=== PATIENT | female | born 1985 | race Caucasian/White ===

== ENCOUNTER 2017-06-30 12:35 | Emergency (ER) | payer BC ==
--- NOTE | 2017-06-30 13:05 | EDM.PDOC ---
ED HPI GENERAL MEDICAL PROBLEM - General Chief Complaint: CHIEF OF POLICE Problem Stated Complaint: bleeding Time Seen by Provider: 06/30/17 13:05 Source of Information: Reports: Patient - History of Present Illness INITIAL COMMENTS - FREE TEXT/NARRATIVE: HISTORY AND PHYSICAL: History of present illness: []31-year-old at 6 weeks by uncertain dates presents with passage of clots and tissue yesterday continued bleeding today currently spotting No fever nausea vomiting chills sweats Primary OB care is Dr. HARVEY Review of systems: As per history of present illness and below otherwise all systems reviewed and negative. Past medical history: As per history of present illness and as reviewed below otherwise noncontributory. Surgical history: As per history of present illness and as reviewed below otherwise noncontributory. Social history: No reported history of drug or alcohol abuse. Family history: As per history of present illness and as reviewed below otherwise noncontributory. Physical exam: HEENT: Atraumatic, normocephalic, pupils reactive, negative for conjunctival pallor or scleral icterus, mucous membranes moist, throat clear, neck supple, nontender, trachea midline. Lungs: Clear to auscultation, breath sounds equal bilaterally, chest nontender. Heart: S1S2, regular, negative for clicks, rubs, or JVD. Abdomen: Soft, nondistended, nontender. Negative for masses or hepatosplenomegaly. Negative for costovertebral tenderness. Pelvis: Stable nontender. Genitourinary: Cervix closed no mass scarred lesion no clots or products of conception Rectal: Deferred. Extremities: Atraumatic, negative for cords or calf pain. Neurovascular unremarkable. Neuro: Awake, alert, oriented. Cranial nerves II through XII unremarkable. Cerebellum unremarkable. Motor and sensory unremarkable throughout. Exam nonfocal. Diagnostics: []Lab as below Ultrasound Therapeutics: [] Impression: Completed Cervix closed 7 weeks by uncertain dates Ultrasound Definitive disposition and diagnosis as appropriate pending reevaluation and review of above. Lower Abdomen Pain Score (Numeric/FACES): 1 - Related Data Allergies Allergy/AdvReac Type Severity Reaction Status Date / Time peanuts Allergy Itching Uncoded 06/30/17 12:46 seasonal Allergy Sneezing Uncoded 06/30/17 12:46 Home Meds: Home Meds ALPRAZolam [Xanax] 0.5 mg PO TID 06/30/17 [History] Past Medical History - Past Health History Medical/Surgical History: Denies Medical/Surgical History CHIEF OF POLICE History: Reports: - Infectious Disease History Infectious Disease History: Reports: Chicken Pox Social & Family History - Family History Family Medical History: Noncontributory - Tobacco Use Smoking Status *Q: Never Smoker Second Hand Smoke Exposure: No - Caffeine Use Caffeine Use: Reports: None - Recreational Drug Use Recreational Drug Use: No ED ROS GENERAL - Review of Systems Review Of Systems: ROS reveals no pertinent complaints other than HPI. ED EXAM, GENERAL - Physical Exam Exam: See Below Course - Vital Signs Last Recorded V/S: Last Vital Signs Temp 36.4 C 06/30/17 12:40 Pulse 69 06/30/17 12:40 Resp 20 06/30/17 12:40 BP 133/73 06/30/17 12:40 Pulse Ox 98 06/30/17 12:40 - Orders/Labs/Meds Orders: Active Orders 24 hr Category Date Time Status OB Ltd 1 or More Fetus [US] Stat Exams 06/30/17 12:58 Taken Labs: Laboratory Tests 06/30/17 06/30/17 06/30/17 Range/Units 13:12 13:12 13:55 WBC 8.67 (4.0-11.0) K/uL RBC 4.71 (4.30-5.90) M/uL Hgb 13.3 (12.0-16.0) g/dL Hct 38.9 (36.0-46.0) % MCV 82.6 (80.0-98.0) fL MCH 28.2 (27.0-32.0) pg MCHC 34.2 (31.0-37.0) g/dL RDW Std Deviation 41.9 (28.0-62.0) fl RDW Coeff of Maria Luz 14 (11.0-15.0) % Plt Count 247 (150-400) K/uL MPV 10.70 (7.40-12.00) fL Neut % (Auto) 69.3 (48.0-80.0) % Lymph % (Auto) 23.3 (16.0-40.0) % [place] % (Auto) 5.4 (0.0-15.0) % Eos % (Auto) 1.8 (0.0-7.0) % Baso % (Auto) 0.2 (0.0-1.5) % Neut # (Auto) 6.0 H (1.4-5.7) K/uL Lymph # (Auto) 2.0 (0.6-2.4) K/uL [place] # (Auto) 0.5 (0.0-0.8) K/uL Eos # (Auto) 0.2 (0.0-0.7) K/uL Baso # (Auto) 0.0 (0.0-0.1) K/uL Nucleated RBC % 0.0 /100WBC Nucleated RBCs # 0 K/uL Sodium 140 (136-146) mmol/L Potassium 3.6 (3.5-5.1) mmol/L Chloride 111 H (98-110) mmol/L Carbon Dioxide 19 L (21-31) mmol/L BUN 7 (6.0-23.0) mg/dL Creatinine 0.6 (0.6-1.5) mg/dL Est Cr Clr Drug Dosing 121.13 mL/min Estimated GFR (MDRD) > 60.0 ml/min Glucose 121 H (60-110) mg/dL Calcium 8.8 (8.8-10.8) mg/dL Total Bilirubin 0.4 (0.1-1.5) mg/dL AST 17 (5-40) IU/L ALT 20 (8-54) IU/L Alkaline Phosphatase 55 (40-150) Total Protein 6.6 (6.0-8.0) g/dL Albumin 3.7 (3.5-5.0) g/dL Globulin 2.9 (2.0-3.5) g/dL Albumin/Globulin Ratio 1.3 (1.3-2.8) HCG, Quant 1623.6 mIU/mL Urine Color RED Urine Appearance CLOUDY Urine pH 6.0 (5.0-8.0) Ur Specific [place] >= 1.030 (1.001-1.035) Urine Protein >=300 (NEGATIVE) mg/dL Urine Glucose (UA) NEGATIVE (NEGATIVE) mg/dL Urine Ketones 15 H (NEGATIVE) mg/dL Urine Occult Blood LARGE H (NEGATIVE) Urine Nitrite NEGATIVE (NEGATIVE) Urine Bilirubin NEGATIVE (NEGATIVE) Urine Urobilinogen 0.2 (<2.0) EU/dL Ur Leukocyte Esterase NEGATIVE (NEGATIVE) Urine RBC TOO NUMBEROUS TO CT H (0-2/HPF) Urine WBC 0-1 (0-5/HPF) Ur Epithelial Cells MODERATE (NONE-FEW) Urine Bacteria FEW (NEGATIVE) Departure - Departure Time of Disposition: 14:59 Disposition: Home, Self-Care 01 Condition: Good Clinical Impression: Complete - Discharge Information Referrals: PCP,None [Primary Care Provider] - Forms: ED Department Discharge Additional Instructions: Return if symptoms persist or worsen As stated return if you have pain that requires further pain medicine otherwise as you suggested ibuprofen 400-800 mg 3 times daily should be adequate. Follow-up with Dr. HARVEY as scheduled on to repeat hCG level The following information is given to patients seen in the emergency department who are being discharged to home. This information is to outline your options for follow-up care. We provide all patients seen in our emergency department with a follow-up referral. The need for follow-up, as well as the timing and circumstances, are variable depending upon the specifics of your emergency department visit. If you don't have a primary care physician on staff, we will provide you with a referral. We always advise you to contact your personal physician following an emergency department visit to inform them of the circumstance of the visit and for follow-up with them and/or the need for any referrals to a consulting specialist. The emergency department will also refer you to a specialist when appropriate. This referral assures that you have the opportunity for follow-up care with a specialist. All of these measure are taken in an effort to provide you with optimal care, which includes your follow-up. Under all circumstances we always encourage you to contact your private physician who remains a resource for coordinating your care. When calling for follow-up care, please make the office aware that this follow-up is from your recent emergency room visit. If for any reason you are refused follow-up, please contact the [facility] emergency department at and asked to speak to the emergency department charge nurse. - My Orders Last 24 Hours: My Active Orders 06/30/17 12:58 OB Ltd 1 or More Fetus [US] Stat - Assessment/Plan Last 24 Hours: My Active Orders 06/30/17 12:58 OB Ltd 1 or More Fetus [US] Stat
[2017-06-30 13:48] LABS: CHLORIDE,CL 111 mmol/L (98-110); SODIUM,NA 140 mmol/L (136-146)
[2017-06-30 15:18] VITALS: BP 103/67
--- NOTE | 2017-07-01 13:38 | US ---
EXAM DATE: 06/30/17 PATIENT'S AGE: 31 Patient: MIREILLE ZEE Facility: [place], [place] Site . Site : 1985 Study: US OB Pelvis [id number] 1:47:47 PM Ordering Physician: Ron Beyer Final Report: INDICATION: Heavy bleeding and pain in . TECHNIQUE: Transvaginal scanning was performed to better evaluate the uterine cavity and adnexa. Ovarian blood flow was evaluated with color-flow and pulsed Doppler. COMPARISON: None. FINDINGS: An intrauterine gestational sac is not visualized. Fluid is present in the lower uterine segment, presumably blood. The ovaries are normal is size and shape. The right ovary measures 3.2 x 2.8 x 2.1 cm and the left 2.6 x 2.0 x 1.7 cm. Ovarian blood flow is demonstrated with color-flow and pulsed Doppler. No adnexal mass or free fluid is apparent. IMPRESSION: No IUP visualized. Fluid in the lower uterine segment, likely blood. Presumed spontaneous AB. Correlate with serial serum HCG levels. Follow up ultrasound suggested if the clinical picture is unclear. Dictated by Des Shah MD @ Jun 30 2017 2:37PM (Electronic Signature) Report Signed by Proxy. INOCENCIO
== END 2017-06-30 15:16 | disposition home or self-care (01) ==
LOC: MW.ED 12:35
DX: O03.9 Complete or unspecified spontaneous abortion without complication (principal); Z91.010 Allergy to peanuts
CPT/HCPCS: 36415; 76815; 76815-26; 80053; 81001; 84702; 85025; 99282; 99284-25

== ENCOUNTER 2020-06-03 08:57 | Inpatient (IN) | payer BC ==
[2020-06-03] MEDS ORDERED: Ondansetron 4 MG/2 ML SDV IVPUSH PRN (21:35)
[2020-06-03] MEDS ORDERED: Carboprost Tromethamine 250 MCG/1 ML Amp IM PRN (21:35)
[2020-06-03] MEDS ORDERED: Terbutaline 1 MG/ML SDV SUBCUT PRN (21:35)
[2020-06-03] MEDS ORDERED: Misoprostol 25 MCG (1/4 of 100 MCG) Tab VAG PRN ×2 (21:35)
[2020-06-03] MEDS ORDERED: Sodium Chloride 0.9% 10 ML SDV IV PRN (21:35)
[2020-06-03] MEDS ORDERED: Water For Irrigation,Sterile 1,000 ML Container IRR PRN (21:35)
[2020-06-03] MEDS ORDERED: Misoprostol 200 MCG Tab PO PRN (21:35)
[2020-06-03] MEDS ORDERED: Butorphanol 1 MG/ML SDV IVPUSH PRN (21:35)
[2020-06-03] MEDS ORDERED: Tranexamic Acid 1,000 MG in Sodium Chloride 0.9% 100 ML IV PRN (21:35)
[2020-06-03] MEDS ORDERED: Lidocaine 1% 50 ML MDV INJECT PRN (21:35)
[2020-06-03] MEDS ORDERED: Methylergonovine 0.2 MG/1 ML Amp IM PRN (21:35)
[2020-06-03] MEDS ORDERED: Oxytocin/0.9 % Sodium Chloride 30 UNIT/500 ML BAG IV SCH ×2 (21:45)
[2020-06-03] MEDS ORDERED: Lactated Ringers 1,000 ML IV SCH (21:45)
[2020-06-04] MEDS ORDERED: Bisacodyl 10 MG Supp RECTAL PRN (09:30)
[2020-06-04] MEDS ORDERED: Lanolin 100% Cream 7 GM Tube TOP PRN (09:30)
[2020-06-04] MEDS ORDERED: Docusate Sodium 100 MG Cap PO PRN (09:30)
[2020-06-04] MEDS ORDERED: oxyCODONE 5 MG Tab PO PRN (09:30)
[2020-06-04] MEDS ORDERED: Witch Hazel Medicated Pads 40/Jar TOP PRN (09:30)
[2020-06-04] MEDS ORDERED: Acetaminophen 500 MG Tab PO PRN (09:30)
[2020-06-04] MEDS ORDERED: Benzocaine/Menthol 20%-0.5% Spray 78 GM Cannister TOP PRN (09:30)
[2020-06-04] MEDS ORDERED: Ibuprofen 400 MG Tab PO PRN (09:30)
[2020-06-04] MEDS: Acetaminophen 500 MG Tab PO PRN ×2 (11:20→17:41)
[2020-06-04] MEDS: Ibuprofen 800 MG Tab PO PRN ×2 (11:20→17:41)
[2020-06-05 07:21] VITALS: BP 124/67; PULSE 89
--- NOTE | 2020-06-05 10:15 | PCM.PNPP ---
- General Info Date of Service: 06/05/20 Functional Status: Reports: Pain Controlled, Tolerating Diet, Ambulating, Urinating - Review of Systems General: Reports: No Symptoms HEENT: Reports: No Symptoms Pulmonary: Reports: No Symptoms Cardiovascular: Reports: No Symptoms Gastrointestinal: Reports: No Symptoms Genitourinary: Reports: No Symptoms Musculoskeletal: Reports: No Symptoms Skin: Reports: No Symptoms Neurological: Reports: No Symptoms Psychiatric: Reports: No Symptoms - Patient Data Vital Signs - Most Recent: Last Vital Signs Temp 36.4 C 06/05/20 07:19 Pulse 89 06/05/20 07:19 Resp 16 06/05/20 07:19 BP 124/67 06/05/20 07:19 Pulse Ox 96 06/05/20 07:19 Weight - Most Recent: 231 lb Lab Results - Last 24 Hours: Laboratory Results - last 24 hr 06/04/20 06/04/20 06/05/20 Range/Units 08:57 08:57 06:00 Hgb 11.7 L (12.0-16.0) g/dL Hct 36.1 (36.0-46.0) % Cord ABG pH 7.126 L (7.18-7.38) Cord ABG Base Excess -9 (-10--2) Cord VBG pH 7.311 (7.25-7.45) Cord VBG Base Excess -7 (-10--2) Med Orders - Current: Current Medications Acetaminophen (Tylenol Extra Strength) 500 mg PO Q4H PRN PRN Reason: Pain Acetaminophen (Tylenol Extra Strength) 1,000 mg PO Q4H PRN PRN Reason: Pain Last Admin: 06/04/20 17:41 Dose: 1,000 mg Documented by: Benzocaine/Menthol (Dermoplast Pain Relief 20%-0.5% [place]) 78 gm TOP ASDIRECTED PRN PRN Reason: Perineal Comfort Measure Last Admin: 06/04/20 11:22 Dose: 78 gm Documented by: Bisacodyl (Dulcolax) 10 mg RECTAL ONETIME PRN PRN Reason: Constipation Butorphanol Tartrate (Stadol) 1 mg IVPUSH Q1H PRN PRN Reason: Pain Last Admin: 06/04/20 06:27 Dose: 1 mg Documented by: Carboprost Tromethamine (Hemabate Ds) 250 mcg IM ASDIRECTED PRN PRN Reason: Post Hemorrhage Docusate Sodium (Colace) 100 mg PO BID PRN PRN Reason: Constipation Emollient Ointment (Lansinoh Hpa) 0 gm TOP ASDIRECTED PRN PRN Reason: Sore Nipples Last Admin: 06/04/20 11:21 Dose: 7 gm Documented by: Oxytocin/Sodium Chloride (Oxytocin 30 Unit/500 Ml-Ns) 30 unit in 500 mls @ 2 mls/hr IV TITRATE NALLELY; Protocol Lactated Ringer's (Ringers, Lactated) 1,000 mls @ 150 mls/hr IV ASDIRECTED NALLELY Last Admin: 06/04/20 06:28 Dose: 150 mls/hr Documented by: Oxytocin/Sodium Chloride (Oxytocin 30 Unit/500 Ml-Ns) 30 unit in 500 mls @ 999 mls/hr IV TITRATE NALLELY Last Admin: 06/04/20 09:00 Dose: 500 mls/hr Documented by: Tranexamic Acid 1,000 mg/ (Sodium Chloride) 110 mls @ 660 mls/hr IV ONETIME PRN PRN Reason: Bleeding Ibuprofen (Motrin) 400 mg PO Q4H PRN PRN Reason: Pain Ibuprofen (Motrin) 800 mg PO Q6H PRN PRN Reason: Pain Last Admin: 06/04/20 17:41 Dose: 800 mg Documented by: Lidocaine HCl (Xylocaine 1%) 50 ml INJECT ONETIME PRN PRN Reason: Laceration repair Last Admin: 06/04/20 09:20 Dose: 50 ml Documented by: Methylergonovine Maleate (Methergine) 0.2 mg IM ASDIRECTED PRN PRN Reason: Post Hemorrhage Misoprostol (Cytotec) 25 mcg VAG ONETIME PRN PRN Reason: Cervical Ripening Last Admin: 06/03/20 22:30 Dose: 25 mcg Documented by: Misoprostol (Cytotec) 25 mcg VAG Q4H PRN PRN Reason: Cervical Ripening Last Admin: 06/04/20 02:40 Dose: 25 mcg Documented by: Misoprostol (Cytotec) 200 mcg PO ONETIME PRN PRN Reason: Post Hemorrhage Ondansetron HCl (Zofran) 4 mg IVPUSH Q4H PRN PRN Reason: Nausea/Vomiting Oxycodone HCl (Oxycodone) 5 mg PO Q2H PRN PRN Reason: Pain Sodium Chloride (Normal Saline) 10 ml IV ASDIRECTED PRN PRN Reason: IV Use Sterile Water (Sterile Water For Irrigation) 1,000 ml IRR ASDIRECTED PRN PRN Reason: delivery Terbutaline Sulfate (Brethine) 0.25 mg SUBCUT ASDIRECTED PRN PRN Reason: Tacysystole Witch Michelle (Tucks) 1 pad TOP ASDIRECTED PRN PRN Reason: comfort care Last Admin: 06/04/20 11:21 Dose: 1 pad Documented by: - Interaction Infant Disposition, : at Bedside Interaction: Holding Infant Feeding: Difficulty with Latch-on Support Person: - Recovery Exam Fundal Tone: Firm Fundal Level: 1 Fingerbreadths Below Umbilicus Fundal Placement: Midline Lochia Amount: Scant Lochia Color: Rubra/Red Perineum Description: Other (see below) Other Perinuem Description: 1st degree laceration. Episiotomy/Laceration: Approximated Bladder Status: Voiding Urinary Elimination: Voided - Exam General: Alert, Oriented, Cooperative, No Acute Distress HEENT: Pupils Equal, Pupils Reactive Neck: Supple, Trachea Midline, No JVD Lungs: Normal Respiratory Effort GI/Abdominal Exam: Soft, Non-Tender, No Organomegaly, No Distention Extremities: Normal Inspection, Normal Range of Motion, Non-Tender, No Pedal Edema Skin: Warm, Dry, Intact Wound/Incisions: Healing Well Neurological: No New Focal Deficit Psy/Mental Status: Alert, Normal Affect, Normal Mood - Problem List Review Problem List Initiated/Reviewed/Updated: Yes - My Orders Last 24 Hours: My Active Orders 06/04/20 09:30 Patient Status [ADT] Routine May Shower [RC] ASDIRECTED Vital Signs [RC] PER UNIT ROUTINE Acetaminophen [Tylenol Extra Strength] 1,000 mg PO Q4H PRN Acetaminophen [Tylenol Extra Strength] 500 mg PO Q4H PRN Benzocaine/Menthol [Dermoplast Pain Relief 20%-0.5% [place]] 78 gm TOP ASDIRECTED PRN Docusate Sodium [Colace] 100 mg PO BID PRN Ibuprofen [Motrin] 400 mg PO Q4H PRN Ibuprofen [Motrin] 800 mg PO Q6H PRN Lanolin [Lansinoh HPA] See Dose Instructions TOP ASDIRECTED PRN bisacodyL [Dulcolax] 10 mg RECTAL ONETIME PRN oxyCODONE 5 mg PO Q2H PRN witleilani Michelle [Tucks] 1 pad TOP ASDIRECTED PRN Assess Lochia [WOMSER] Per Unit Routine Assess Uterine Involution [WOMSER] Per Unit Routine Ice Therapy [OM.PC] Per Unit Routine Perineal Care [OM.PC] Per Unit Routine Peripheral IV Discontinue [OM.PC] Routine 06/04/20 Lunch Regular Diet [DIET] 06/05/20 10:09 Ready for Discharge [RC] PER UNIT ROUTINE - Assessment Assessment:: 34yo PPD1 s/p , stable and recovering well. - Plan Plan:: - vitals stable - hgb 11.7, bleeding light, no s/s of anemia - ambulating well, voiding - supplementing with formula, baby not latching Stable for discharge home, reviewed care instructions.
--- NOTE | 2020-06-06 15:10 | OR ---
SURGEON: Federico Vo MD DATE OF PROCEDURE: 06/04/2020 INDICATION FOR PROCEDURE: A 34-year-old, G2, P 0-0-1-0, at 39 weeks and 1 day admitted for elective induction of labor. The patient had a complicated by low-lying placenta, which resolved on ultrasound at 32 weeks. She is GBS negative. She received 3 doses of Cytotec and began to progress quickly and was found to be fully dilated. She had SROM with blood-tinged fluid. The heart rate tracing had intermittent variable decelerations that recovered with repositioning. She began pushing with contractions. PREOPERATIVE DIAGNOSIS: Vega intrauterine at 39 weeks and 1 day. POSTOPERATIVE DIAGNOSIS: Vega intrauterine at 39 weeks and 1 day. PROCEDURE PERFORMED: Normal spontaneous vaginal delivery, repair of first-degree laceration. ANESTHESIA: Local anesthesia. FINDINGS: Viable male infant, score of 5 and 9, weight of 3720. Tight nuchal cord x1 was noted. DESCRIPTION OF PROCEDURE: The patient pushed with contractions for approximately 40 minutes with good descent. head delivered in occiput anterior position over intact perineum. Anterior shoulder delivered easily followed by posterior shoulder and remaining body. A tight nuchal cord was noted and reduced after delivery. The baby was initially pale and did not cry, but responded well to stimulation. The baby was placed on maternal chest and evaluated by awaiting nursery staff. The baby was pink, crying, and moving all extremities shortly after delivery. The umbilical cord was clamped and cut after 60 seconds and no longer pulsating. The umbilical cord gases were obtained. The placenta was removed with gentle traction on the umbilical cord. It was examined and found to be intact with 3- vessel cord. Fundal massage was performed and the uterus was firm and below the umbilicus. The bleeding was light. Perineum noted to have a first-degree perineal laceration. 15 mL of 1% lidocaine without epi was injected for local anesthesia and the laceration was repaired in usual fashion using 3-0 Vicryl. Hemostasis was confirmed. The patient tolerated the procedure well and was given care instructions. ANY / APOLINAR /[id number]
== END 2020-06-05 12:12 | disposition home or self-care (01) | DRG 560 ==
LOC: MW.OB 08:57 → OBSVTOIN 06-04 08:57 → MW.OB 06-04 19:41
PROVIDERS: ADMIT Obstetrics & Gynecology; ATTEND Obstetrics & Gynecology
PROC: 10E0XZZ Delivery of Products of Conception, External Approach (ICD-10-PCS; principal; 2020-06-04)
PROC: 0HQ9XZZ Repair Perineum Skin, External Approach (ICD-10-PCS; 2020-06-04)
DX: O36.63X0 Maternal care for excessive fetal growth, third trimester, not applicable or unspecified (principal); Z3A.39 39 weeks gestation of pregnancy; Z37.0 Single live birth; O69.1XX0 Labor and delivery complicated by cord around neck, with compression, not applicable or unspecified; O70.0 First degree perineal laceration during delivery; Z11.59 Encounter for screening for other viral diseases
CPT/HCPCS: 36415; 59025; 59409; 82803; 85014; 85018; 85027; 86592; 86850; 86900; 86901; A9270-GY; J0595; J2001; J2590; J7120; U0002